=== PATIENT | female | born 1975 | race Caucasian/White ===

== ENCOUNTER → 2016-08-26 | Outpatient (CLI) | payer OTHER ==
[~2016-08-26] MED LIST: PREN1TAB53 PO
--- NOTE | 2016-08-26 15:45 | DI ---
Indication: ITS.REASON: R29.898 Other symptoms and signs involving the musculoskeletal sy PROCEDURE: MRI BRAIN W/O CONTRAST: Encounter: Initial Comparisons: Brain MRI dated March 25, 2015 Technique: Multiplanar, multisequence, MR imaging of the head without contrast was acquired. FINDINGS: The ventricles are of normal size, shape, and contour for the patient's age. The brain stem, cerebellum, and cerebral hemispheres have a normal morphologic appearance as well as MR signal intensity on all pulse sequences. There are no areas of restricted diffusion on diffusion weighted imaging to suggest an acute infarct. There is no evidence of an intracranial mass lesion, intracranial hemorrhage, or hydrocephalus. The visualized portions of the orbits, calvarium, paranasal sinuses, and skull base demonstrate no significant abnormality. IMPRESSION: Normal exam. No change. .
== END ==
LOC: IMA 14:46
PROVIDERS: ATTEND Physician Assistant Medical
DX: R29.898 Other symptoms and signs involving the musculoskeletal system (principal)